=== PATIENT | male | born 1990 | race Caucasian/White ===

== ENCOUNTER 2022-11-28 07:06 | Emergency (ER) | payer OTHER, SELFPAY ==
[2022-11-28 07:10] VITALS: BP 137/92; PULSE 113; RESP 18; TEMP 36.8; O2SAT 98; BMI 25.8
--- NOTE | 2022-11-28 07:14 | PC.NURSE ---
pt states toothache for past couple of days and woke up this morning and right lower jaw swollen and painful.
--- NOTE | 2022-11-28 07:15 | ED_ITS ---
HPI - Dental/Oral General Chief complaint: Dental/Oral Stated complaint: SWOLLEN JAW Time Seen by Provider: 11/28/22 07:15 Source: patient Mode of arrival: walk-in History of Present Illness HPI Narrative: Patient presents to the emergency department complaining of right lower tooth #30 and 31 pain. He states he had a broken molar and yesterday started having some pain to the right lower jaw and this morning when she woke up the was some swelling. He denies any fever, throat swelling or difficulty swallowing. He does not have an appointment with his dentist unttil a week from now. Denies any drainage. He has been applying [id number] Orajel and took Motrin yesterday. Related Data Previous Rx's Medication Instructions Recorded clindamycin HCl 300 mg capsule 300 mg PO Q6H 10 days #40 caps 11/28/22 ibuprofen 800 mg tablet 800 mg PO Q8H PRN pain #20 tabs 11/28/22 tramadol 50 mg tablet 50 mg PO TID PRN pain 5 days #14 11/28/22 tabs Allergies Allergy/AdvReac Type Severity Reaction Status Date / Time amoxicillin Allergy Unknown Verified 11/28/22 07:12 Review of Systems 2 ROS Status of ROS 10 or more systems reviewed and unremarkable except as noted in history and below Exam Narrative Exam Narrative: General: The patient is comfortable, alert and oriented x3, well appearing, non toxic in no apparent distress. Head: Atraumatic and normocephalic. Eyes: Normal conjunctiva ENT: The oropharynx is normal. No pharyngeal erythema, uvular edema, tonsillar exudates, asymmetry or trismus. Uvula is midline. Mouth is normal to inspection with the exception of a pain on percussion of the tooth #30-31 and evidence of dental caries. Small amount of edema to the right lower jaw, no Erythema or fluctuance to the face.. Floor of the mouth is soft. No tenderness in the submental or submandibular space. No tongue elevation or deviation. The patient has no evidence of periapical abscess, gingivitis or other acute pathology. A irway is patent. Neck: The neck demonstrates normal range of motion. No meningeals signs are present. No stridor. No masses or lymphandenopathy noted. Respiratory: No acute distress, lungs are clear to auscultation, no wheezing, rhonchi, or rales noted. No stridor or retractions are noted. Cardiovascular: Regular rate and rhythm Skin: The skin exam shows no evidence of rashes Neuro: Alert and oriented x4, normal speech Lymphatic: No cervical lymphadenopathy Constitutional Vital Signs, click to edit/add: Last Vital Signs Temp 98.2 F 11/28/22 07:10 Pulse 113 H 11/28/22 07:10 Resp 18 11/28/22 07:10 BP 137/92 H 11/28/22 07:10 Pulse Ox 98 11/28/22 07:10 Course Vital Signs Vital signs: Vital Signs Temperature 98.2 F 11/28/22 07:10 Pulse Rate 113 H 11/28/22 07:10 Respiratory Rate 18 11/28/22 07:10 Blood Pressure 137/92 H 11/28/22 07:10 Pulse Oximetry 98 11/28/22 07:10 Temperature 98.2 F 11/28/22 07:10 Pulse Rate 113 H 11/28/22 07:10 Respiratory Rate 18 11/28/22 07:10 Blood Pressure 137/92 H 11/28/22 07:10 Pulse Oximetry 98 11/28/22 07:10 MDM - Dental/Oral MDM Narrative Medical decision making narrative: Patient given a prescription for Motrin, clindamycin, and Tramadol. Oarrs was checked. Patient nontoxic. He is to continue to use the oral analgesics as needed. In follow-up with the dentist. Discussed with the patient currently there is no need for any radiologic studi es. At this time the patient is without objective evidence of an acute process requiring hospitalization or inpatient management. The patient has remained hemodynamically stable. No additional indication for emergent studies at this time. I answered all questions. Discussed discharge instructions including standard anticipatory guidance and what should prompt a return to the emergency department, including if they get worse are not getting better or develops any new or concerning symptoms. I've given them specific time frame in which to follow-up, and who to follow-up with. The patient demonstrates understanding. Patient is nontoxic and stable for discharge with outpatient follow-up. This note was created with the assistance of a speech recognition program. Although the intention is to generate documents that actually reflects the content of the visit, no guarantees can be provided that every mistake has been identified and corrected by editing. Differential Diagnosis Differential diagnosis: Likely gingival abscess, dental caries, toothache, dental abscess and fracture of tooth Discharge Plan Discharge Chief Complaint: Dental/Oral Clinical Impression: Dental abscess Patient Disposition: Home, Self-Care Time of Disposition Decision: 07:28 Condition: Good Mode of Transportation: Private Vehicle Prescriptions / Home Meds: New clindamycin HCl 300 mg capsule 300 mg PO Q6H 10 Days Qty: 40 0RF ibuprofen 800 mg tablet 800 mg PO Q8H PRN (Reason: pain) Qty: 20 0RF tramadol 50 mg tablet 50 mg PO TID PRN (Reason: pain) 5 Days Qty: 14 0RF Instructions: Dental Abscess (ED) Stand Alone Forms: Portal Instructions Referrals: Giovany Monroe MD [Primary Care Provider] - 1 week Discharge Date/Time: 11/28/22 07:39
== END 2022-11-28 07:39 | disposition home or self-care (01) ==
PROVIDERS: Emergency Provider Emergency Medicine; PCP Family Medicine
DX: K04.7 Periapical abscess without sinus (principal)
CPT/HCPCS: 99282